=== PATIENT | female | born 2000 | race Two or more races ===

== ENCOUNTER 2020-12-05 18:10 | Observation (INO) | payer MEDICAID ==
[~2020-12-05] VITALS: Ht 157.5 cm; Wt 58.5 kg
[2020-12-05 21:21] VITALS: BP 107/58
[2020-12-05 21:22] LABS: BILIRUBIN,URINE NEGATIVE (NEGATIVE); BLOOD, URINE TRACE-I (NEGATIVE); COLOR,URINE YELLOW (YELLOW); LEUKOCYTE ESTERASE ,URINE 2+ (NEGATIVE); NITRITE, URINE NEGATIVE (NEGATIVE); PH,URINE 6.5 (5.0-9.0); UGLUCOSE NEGATIVE (NEGATIVE)
[2020-12-05 21:37] LABS: APPEARANCE,URINE HAZY (CLEAR)
[2020-12-05] MEDS ORDERED: FERR-212 PO (21:42)
[2020-12-05] MEDS ORDERED: PREN-371 PO (21:42)
[2020-12-05 21:57] LABS: RBC,URINE 0-5 /HPF (0-5)
== END 2020-12-06 08:50 | disposition home or self-care (01) ==
LOC: MLD 19:43
PROVIDERS: ADMIT Obstetrics & Gynecology; ATTEND Obstetrics & Gynecology
DX: O46.93 Antepartum hemorrhage, unspecified, third trimester (principal); Z3A.28 28 weeks gestation of pregnancy
CPT/HCPCS: 36415; 59025; 81001; 85384; 87086; G0378

== ENCOUNTER 2021-03-09 07:05 | Inpatient (IN) | payer OTHER, SELFPAY ==
[~2021-03-09] VITALS: Ht 157.5 cm; Wt 63.5 kg
[~2021-03-09 07:05] MED LIST: FERR-212 PO; PREN-371 PO
[2021-03-09] MEDS ORDERED: CARBOPROST 250 MCG/ML AMP IM PRN (07:35)
[2021-03-09] MEDS ORDERED: LACTATED RINGERS 1,000 ML IV SCH (07:35)
[2021-03-09] MEDS ORDERED: OXYTOCIN 10 UNITS/ML VIAL IM SCH (07:35)
[2021-03-09] MEDS ORDERED: PROMETHAZINE 25 MG/ML VIAL IVP PRN (07:35)
[2021-03-09] MEDS ORDERED: NALBUPHINE 10 MG/ML AMP IVP PRN (07:35)
[2021-03-09] MEDS ORDERED: METHYLERGONOVINE 0.2 MG/ML AMP IM PRN (07:35)
[2021-03-09] MEDS ORDERED: OXYTOCIN 20 UNITS in LACTATED RINGERS 1,000 ML IV SCH (07:40)
[2021-03-09] MEDS ORDERED: MORPHINE SULFATE 5 MG/ML VIAL IVP PRN (08:15)
[2021-03-09] MEDS ORDERED: ONDANSETRON 4 MG/2 ML VIAL IVP PRN (08:15)
[2021-03-09] MEDS ORDERED: MORPHINE SULFATE 10 MG/ML VIAL ONE (08:18)
[2021-03-09] MEDS ORDERED: ONDANSETRON 4 MG/2 ML VIAL ONE (08:19)
[2021-03-09] MEDS ORDERED: AMPICILLIN 2,000 MG VIAL ONE (08:47)
[2021-03-09 09:17] LABS: BASOPHILS # (AUTO) 0.1 K/uL (0.00-0.22); BASOPHILS % (AUTO) 0.4 % (0.0-2.0); EOSINOPHILS % (AUTO) 0.3 % (0.0-4.0); HEMOGLOBIN 8.6 g/dL (12.0-16.0); LYMPHOCYTES # (AUTO) 1.4 K/uL (2.5-16.5); LYMPHOCYTES % (AUTO) 9.4 % (20.5-51.1); MEAN CORPUSCULAR HEMOGLOBIN 24 pg (27-31); MEAN CORPUSCULAR HGB CONC 32 g/dL (33-37); MEAN CORPUSCULAR VOLUME 75.3 fL (80-94); MONOCYTES # (AUTO) 0.8 K/uL (0.8-1.0); MONOCYTES % (AUTO) 5.4 % (1.7-9.3); NEUTROPHILS # (AUTO) 12.9 K/uL (1.8-7.7); NEUTROPHILS % (AUTO) 84.5 % (42.2-75.2); PLATELET COUNT (AUTO) 317 K/uL (140-450); RED BLOOD CELL COUNT(AUTO) 3.59 MIL/uL (4.20-5.40); RED CELL DISTRIBUTION WIDTH 16.7 % (11.6-13.7); WHITE BLOOD COUNT (AUTO) 15.2 K/uL (4.8-10.8)
[2021-03-09 09:18] LABS: ALBUMIN 2.8 g/dL (3.4-5.0); ANION GAP 15.7 (8-16); CARBON DIOXIDE 22.9 mmol/L (21-32); CREATININE 0.5 mg/dL (0.6-1.3); POTASSIUM 3.6 mmol/L (3.5-5.1); TOTAL BILIRUBIN 0.3 mg/dL (0.0-1.0)
[2021-03-09 09:22] VITALS: BP 121/73
[2021-03-09] MEDS ORDERED: ROPIVACAINE 0.2%/NS PREMIX 200 ML EPI ONE (09:50)
[2021-03-09] MEDS ORDERED: OXYTOCIN 20 UNITS/LR PREMIX 1,000 ML IV ONE (10:43)
[2021-03-09] MEDS ORDERED: AMPICILLIN 2,000 MG in NACL 0.9% 100 ML IV SCH (12:00)
[2021-03-09 12:40] LABS: APPEARANCE,URINE CLEAR (CLEAR); BILIRUBIN,URINE NEGATIVE (NEGATIVE); BLOOD, URINE TRACE-I (NEGATIVE); COLOR,URINE YELLOW (YELLOW); LEUKOCYTE ESTERASE ,URINE NEGATIVE (NEGATIVE); NITRITE, URINE NEGATIVE (NEGATIVE); UGLUCOSE NEGATIVE (NEGATIVE)
[2021-03-09 12:53] LABS: WBC,URINE 0-5 /HPF (0-5)
[2021-03-09] MEDS ORDERED: BENZOCAINE/MENTHOL 20%-0.5% 60 GM CAN TP PRN (14:25)
[2021-03-09] MEDS ORDERED: IBUPROFEN 800 MG TAB PO PRN (14:25)
[2021-03-09] MEDS ORDERED: AMPICILLIN 1,000 MG in NACL 0.9% 50 ML IV SCH (16:00)
[2021-03-10 08:24] LABS: HEMATOCRIT 24.1 % (36-48); HEMOGLOBIN 7.7 g/dL (12.0-16.0)
--- NOTE | 2021-03-10 10:27 | NUR ---
PATIENT HAS BEEN SCREENED AND CATEGORIZED LOW NUTRITION RISK. PATIENT WILL BE SEEN WITHIN 7 DAYS OF ADMISSION. 03/15/[address]
[2021-03-10] MEDS ORDERED: IRON SUCROSE COMPLEX 100 MG/5 ML VIAL IVP ONE (13:20)
[2021-03-10] MEDS ORDERED: IRON SUCROSE COMPLEX IVP SCH ×2 (15:00)
[2021-03-10] MEDS ORDERED: NACL 0.9% IVP SCH ×2 (15:00)
[2021-03-10] MEDS ORDERED: MEASLES, MUMPS, AND RUBELLA 1 VIAL SQVAC ONE (23:00)
[2021-03-11 06:51] LABS: HEMOGLOBIN 8.4 g/dL (12.0-16.0)
[2021-03-11] MEDS ORDERED: FERROUS SULFATE 325 MG TABEC PO SCH (08:00)
== END 2021-03-11 12:30 | disposition home or self-care (01) | DRG 560 ==
LOC: OBSVTOIN 07:05 → MLD 07:05 → MFCC 14:35
PROVIDERS: ADMIT Obstetrics & Gynecology; ATTEND Obstetrics & Gynecology
PROC: 10E0XZZ Delivery of Products of Conception, External Approach (ICD-10-PCS; principal; 2021-03-09)
PROC: 3E0234Z Introduction of Serum, Toxoid and Vaccine into Muscle, Percutaneous Approach (ICD-10-PCS; 2021-03-09)
DX: O99.02 Anemia complicating childbirth (principal); Z37.0 Single live birth; D62 Acute posthemorrhagic anemia; Z20.822 Contact with and (suspected) exposure to COVID-19; Z23 Encounter for immunization; Z3A.40 40 weeks gestation of pregnancy
CPT/HCPCS: 36415; 59409; 80053; 81001; 85018; 85025; 86592; 90707; J0290; J1756; J2270; J2405; J2590; J2795; J7030; J7120